=== PATIENT | male | born 1980 | race Caucasian/White ===

== ENCOUNTER 2021-05-09 18:05 | Emergency (ER) | payer SELFPAY ==
[~2021-05-09] VITALS: Ht 160 cm; Wt 95.5 kg
[2021-05-09 20:27] VITALS: BP 126/88
== END 2021-05-09 20:37 | disposition home or self-care (01) ==
LOC: EMS 18:07
DX: T50.991A Poisoning by other drugs, medicaments and biological substances, accidental (unintentional), initial encounter (principal); F14.90 Cocaine use, unspecified, uncomplicated; F17.210 Nicotine dependence, cigarettes, uncomplicated; Y92.89 Other specified places as the place of occurrence of the external cause
CPT/HCPCS: 99283